=== PATIENT | female | born 1990 | race Caucasian/White ===

== ENCOUNTER 2017-02-11 21:48 | Outpatient (CLI) | payer OTHER ==
[~2017-02-11] VITALS: Ht 165.1 cm; Wt 65.9 kg
[~2017-02-11 21:48] MED LIST: MULTIPLE VITAMI1 TA5 PO; PRENATAL1 TA7 PO
[2017-02-11 21:55] VITALS: BP 122/76; PULSE 111; TEMP 97.6
[2017-02-11 22:32] VITALS: BP 132/76; PULSE 111; TEMP 98.3
[2017-02-11 23:08] LABS: PH 7 (5-8); SQUAMOUS EPITHELIAL None Seen /hpf; URINE APPEARANCE Clear; URINE BACTERIA None Seen /hpf; URINE BILIRUBIN Negative (NEGATIVE); URINE BLOOD Negative (NEGATIVE); URINE COLOR Straw; URINE GLUCOSE Negative (NEGATIVE); URINE KETONE Negative (NEGATIVE); URINE RBC 0-2 /hpf; URINE UROBILINOGEN Negative (NEGATIVE); URINE WBC 0-2 /hpf
== END 2017-02-11 23:54 | disposition home or self-care (01) ==
LOC: LDRO 21:48
PROVIDERS: Obstetrics & Gynecology
DX: O47.02 False labor before 37 completed weeks of gestation, second trimester (principal); Z3A.22 22 weeks gestation of pregnancy

== ENCOUNTER 2017-04-18 13:50 | Inpatient (IN) | payer OTHER ==
[~2017-04-18] VITALS: Ht 162.6 cm; Wt 79.1 kg
[2017-06-12] VITALS (7 sets, daily range): BP systolic 109–127; BP diastolic 55–78; PULSE 86–96; TEMP 98.3
[2017-06-12 20:32] LABS: BASO % 0.2 % (0.0-2.0); EOS # 0.1 (0.0-0.7); EOS % 0.8 % (0-4.0); GRAN # 8.1 (1.4-6.5); GRAN % 64.6 % (42.2-75.2); HEMOGLOBIN 12.2 g/dl (12.5-16.0); LYMPH # 3.1 (1.2-3.4); LYMPH % 24.8 % (20.0-51.0); MEAN CELL VOLUME 94 fl (80.0-100.0); MEAN CORPUSCULAR HEMOGLOBIN 32 pg (27.0-31.0); MEAN CORPUSCULAR HGB CONC 34 g/dl (33.0-37.0); MEAN PLATELET VOLUME 11.5 fl (7.4-10.4); MONO % 8.2 % (1.7-9.3); PLATELET COUNT 174 K/mm3 (130-400); RED BLOOD COUNT 3.85 M/mm3 (4.10-5.30); REDCELL DISTRIBUTION WIDTH-CV 12.8 % (11.5-14.5); WHITE BLOOD COUNT 12.5 K/mm3 (4.8-10.8)
[2017-06-13] VITALS (74 sets, daily range): BP systolic 97–140; BP diastolic 50–87; PULSE 63–139; TEMP 98–98.5
[2017-06-14 01:05] VITALS: BP 122/57; PULSE 79; TEMP 97.4
[2017-06-14 04:35] VITALS: BP 108/62; PULSE 80; TEMP 97.6
[2017-06-14 07:45] VITALS: BP 124/72; PULSE 83; TEMP 97.7
[2017-06-14 07:49] LABS: HEMATOCRIT 35.3 % (37.0-47.0)
[2017-06-14] MEDS ORDERED: PERCOCET 325 MG1 TA2 PO (08:47)
[2017-06-14] MEDS ORDERED: IBU600 MG PO (08:47)
[2017-06-14 16:49] VITALS: BP 122/65; PULSE 98; TEMP 98
[2017-06-15 09:00] VITALS: BP 119/64; PULSE 85; TEMP 98.9
== END 2017-06-15 12:40 | disposition home or self-care (01) | DRG 775 ==
LOC: EDSTATUS 06-12 07:59 → LDRO 06-12 13:49 → OB 06-12 19:17 → LDR 06-12 19:17 → OB 06-13 21:30
PROVIDERS: Obstetrics & Gynecology
PROC: 10D07Z6 Extraction of Products of Conception, Vacuum, Via Natural or Artificial Opening (ICD-10-PCS; principal; 2017-06-13)
PROC: 0DQR0ZZ Repair Anal Sphincter, Open Approach (ICD-10-PCS; 2017-06-13)
PROC: 3E033VJ Introduction of Other Hormone into Peripheral Vein, Percutaneous Approach (ICD-10-PCS; 2017-06-13)
PROC: 0W8NXZZ Division of Female Perineum, External Approach (ICD-10-PCS; 2017-06-13)
DX: O48.0 Post-term pregnancy (principal); O70.21 Third degree perineal laceration during delivery, IIIa; O76 Abnormality in fetal heart rate and rhythm complicating labor and delivery; Z3A.40 40 weeks gestation of pregnancy; Z37.0 Single live birth
CPT/HCPCS: J1200; J2590; J7120

== ENCOUNTER → 2017-06-20 | Outpatient (CLI) | payer OTHER ==
[~2017-06-20] MED LIST changes: +IBU600 MG PO; +PERCOCET 325 MG1 TA2 PO
== END ==
LOC: OLC 13:50
DX: Z39.1 Encounter for care and examination of lactating mother (principal); Z71.89 Other specified counseling

== ENCOUNTER → 2017-06-22 | Outpatient (CLI) | payer OTHER | LOC: OLC 13:51 | DX: Z39.1 Encounter for care and examination of lactating mother (principal); Z71.89 Other specified counseling ==

== ENCOUNTER → 2017-06-27 | Outpatient (CLI) | payer OTHER | LOC: OLC 14:57 | DX: Z39.1 Encounter for care and examination of lactating mother (principal); Z71.89 Other specified counseling ==

== ENCOUNTER → 2017-07-04 | Outpatient (CLI) | payer OTHER | LOC: LAC 10:37 | DX: Z39.1 Encounter for care and examination of lactating mother (principal); Z71.89 Other specified counseling ==